=== PATIENT | male | born 1975 | race Two or more races ===

== ENCOUNTER 2019-11-24 11:36 | Emergency (ER) | payer SELFPAY ==
--- NOTE | 2019-11-24 12:44 | ED Physician Documentation ---
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 Worse at night and after eating. Sometime dyspnea. Was seen at a clinic a few days before Xmas and lipase was in the 80s. Also had some mild hypothyroidsim. Started on PPI for presumed gastritis. No help and pain worse x3-4 days. No chg with L arm motion.) - Additonal information Additional information: He does not drink alcohol, he never has had any problems with his heart. He has not had an ultrasound after the lipase was mildly elevated. Review of Systems Ten Systems: 10 systems reviewed and negative Constitutional: denies: Fever, Chills Nose: denies: Rhinorrhea / runny nose, Congestion Throat: denies: Sore throat Cardiac: denies: Chest pain / pressure, Palpitations Respiratory: denies: Dyspnea, Cough GI: reports: Abdominal Pain, Nausea. denies: Vomiting, Diarrhea PD PAST MEDICAL HISTORY - Present Medications Home Medications: Ambulatory Orders Medication Instructions Recorded Confirmed Doxycycline Hyclate 100 mg PO BID #14 capsule 11/24/19 predniSONE [Deltasone] 20 mg PO [id number] #21 tab 11/24/19 - Allergies Allergies/Adverse Reactions: Allergies Allergy/AdvReac Type Severity Reaction Status Date / Time No Known Drug Allergies Allergy Verified 11/24/19 11:42 PD ED PE NORMAL - Vitals Vital signs reviewed: Yes - General General: Alert and oriented X 3, No acute distress - HEENT HEENT: PERRL, EOMI - Neck Neck: Supple, no meningeal sign, No bony TTP - Cardiac Cardiac: RRR, No murmur - Respiratory Respiratory: No respiratory distress, Clear bilaterally - Abdomen Abdomen: Non tender - Back Back: No CVA TTP, No spinal TTP - Derm Derm: Normal color, Warm and dry - Extremities Extremities: No edema, No calf tenderness / cord - Neuro Neuro: Alert and oriented X 3, Normal speech - Psych Psych: Normal mood, Normal affect Results - Vitals Vitals: Vital Signs - 24 hr 11/24/19 11/24/19 11:42 14:52 Temperature 36.7 C Heart Rate 83 65 Respiratory 14 18 Rate Blood Pressure 147/97 H 128/93 H O2 Saturation 99 96 Oxygen O2 Source Room air - EKG (time done) 1349 Rate: Rate (enter#) (69) Rhythm: NSR [place]: Normal Intervals: Normal [place] QRS: Normal (poss rvh) Ischemia: Normal ST segments Computer interpretation: Agree with computer - Labs Labs: Laboratory Tests 11/24/19 11/24/19 11/24/19 10:55 12:55 12:55 WBC 6.9 RBC 5.60 Hgb 16.5 Hct 48.2 MCV 86.1 MCH 29.5 MCHC 34.2 RDW 12.3 Plt Count 253 MPV 10.6 Neut # (Auto) 4.0 Lymph # (Auto) 2.0 [place] # (Auto) 0.5 Eos # (Auto) 0.3 Baso # (Auto) 0.1 Absolute Nucleated RBC 0.00 Nucleated RBC % 0.0 D-Dimer Sodium 141 Potassium 4.1 Chloride 106 Carbon Dioxide 27 Anion Gap 8.0 BUN 17 Creatinine 1.0 Estimated GFR (MDRD) 82 L Glucose 106 H Calcium 9.8 Total Bilirubin 1.0 AST 26 ALT 35 Alkaline Phosphatase 73 Troponin I High Sens 3.7 B-Natriuretic Peptide Total Protein 7.9 Albumin 4.6 Globulin 3.3 Albumin/Globulin Ratio 1.4 Lipase 59 H Urine Color Urine Clarity Urine pH Ur Specific [place] Urine Protein Urine Glucose (UA) Urine Ketones Urine Occult Blood Urine Nitrite Urine Bilirubin Urine Urobilinogen Ur Leukocyte Esterase Ur Microscopic Review Urine Culture Comments 11/24/19 11/24/19 11/24/19 12:55 12:55 13:55 WBC RBC Hgb Hct MCV MCH MCHC RDW Plt Count MPV Neut # (Auto) Lymph # (Auto) [place] # (Auto) Eos # (Auto) Baso # (Auto) Absolute Nucleated RBC Nucleated RBC % D-Dimer < 200.0 L Sodium Potassium Chloride Carbon Dioxide Anion Gap BUN Creatinine Estimated GFR (MDRD) Glucose Calcium Total Bilirubin AST ALT Alkaline Phosphatase Troponin I High Sens B-Natriuretic Peptide 10 Total Protein Albumin Globulin Albumin/Globulin Ratio Lipase Urine Color YELLOW Urine Clarity CLEAR Urine pH 6.5 Ur Specific [place] 1.010 Urine Protein NEGATIVE Urine Glucose (UA) NEGATIVE Urine Ketones NEGATIVE Urine Occult Blood NEGATIVE Urine Nitrite NEGATIVE Urine Bilirubin NEGATIVE Urine Urobilinogen 0.2 (NORMAL) Ur Leukocyte Esterase NEGATIVE Ur Microscopic Review NOT INDICATED Urine Culture Comments NOT INDICATED PD MEDICAL DECISION MAKING - ED course ED course: 44-year-old gentleman with a chronic left-sided chest pain radiating to the shoulder and back which is worse over the last 4 days. Examination is normal. His EKG from the clinic was reviewed, they had it with them. It was without ischemic changes. He does have hypercholesterolemia. His lipases have been very modestly elevated. He does not drink alcohol. Work-up here demonstrated a chest x-ray that was concerning for a left pleural effusion this was followed by CT, he actually did not have a pleural effusion on the CT, just pleural thickening and old scarring as well as bronchiectasis at the right base. His abdominal ultrasound was negative except for mild steatosis. Lab work demonstrates a very mildly elevated lipase, otherwise basically negative. I think cardiac disease has been ruled out at this point. We will treat the bronchiectasis expectantly with antibiotics and steroids, and he is to follow-up with his doctor for further evaluation and treatment. Of note he has recently been tested for tuberculosis with negative results. Departure - Departure Disposition: 01 Home, Self Care Clinical Impression: Hepatic steatosis Chest pain Qualifiers: Chest pain type: pleurodynia Qualified Code(s): R07.81 - Pleurodynia Bronchiectasis Qualifiers: Bronchiectasis type: with acute exacerbation Qualified Code(s): J47.1 - Bronchiectasis with (acute) exacerbation Condition: Good Record reviewed to determine appropriate education?: Yes Instructions: ED Chest Pain NonCardiac, Bronchiectasis Dc Prescriptions: Doxycycline Hyclate 100 mg PO BID #14 capsule predniSONE [Deltasone] 20 mg PO [id number] #21 tab Print Language: Bahamian Comments: [place] discutimos, oswald evaluacin de hoy demuestra que tiene algo llamado bronquiectasia pulmonar que sospecho que le est causando dolor. Todas carlo otras pruebas son bastante normales. Tu prueba del corazn est jessi. Oswald lipasa de hoy es 60, lo que considero bastante intrascendente. Quiero que hagas un seguimiento con tu mdico con garry copia de los resultados que te di. Regrese por sntomas nuevos o que empeoran.
[2019-11-24 13:02] LABS: BASOPHILS # (AUTO) 0.1 10^3/uL (0.0-0.1); BASOPHILS % (AUTO) 0.7 %; EOSINOPHILS # (AUTO) 0.3 10^3/uL (0.0-0.7); EOSINOPHILS % (AUTO) 4.2 %; HGB - HEMOGLOBIN 16.5 g/dL (14.0-18.0); LYMPHOCYTES % (AUTO) 29.4 %; MEAN CORPUSCULAR HEMOGLOBIN 29.5 pg (27.0-31.0); MEAN CORPUSCULAR HGB CONC 34.2 g/dL (32.0-36.0); MEAN CORPUSCULAR VOLUME 86.1 fL (80.0-94.0); MEAN PLATELET VOLUME 10.6 fL (7.4-11.4); MONOCYTES # (AUTO) 0.5 10^3/uL (0.0-1.0); MONOCYTES % (AUTO) 7.3 %; PLT - PLATELET COUNT 253 10^3/uL (130-450); RED CELL DISTRIBUTION WIDTH 12.3 % (12.0-15.0); WHITE BLOOD COUNT 6.9 x10^3/uL (4.8-10.8)
[2019-11-24 13:14] LABS: ALBUMIN 4.6 g/dL (3.2-5.5); ALBUMIN/GLOBULIN RATIO 1.4 (1.0-2.2); CALCIUM 9.8 mg/dL (8.5-10.3); TOTAL PROTEIN 7.9 g/dL (6.7-8.2)
--- NOTE | 2019-11-24 13:40 | XRAY Report ---
Reason: chest pain Procedure Date: 11/24/2019 Accession Number: [id number] / [id number] Procedure: XR - Chest 2 View X-Ray CPT Code: 58703 Final Report FULL RESULT: EXAM: CHEST RADIOGRAPHY EXAM DATE: 11/24/2019 01:17 PM. CLINICAL HISTORY: Chest pain. COMPARISON: None. TECHNIQUE: 2 views. FINDINGS: Lungs/Pleura: Small left pleural effusion with underlying atelectasis versus infiltrate. Otherwise clear. No right effusion. No pneumothorax. Mediastinum: Heart and mediastinal contours are unremarkable. Upper lobe vessels not distended. Other: None. IMPRESSION: Small left pleural effusion with atelectasis versus infiltrate. RADIA
[2019-11-24] MEDS ORDERED: IOVERSOL 320 100 ML VIAL IVP ONE ×2 (14:01→14:18)
[2019-11-24 14:07] LABS: BILIRUBIN,URINE NEGATIVE (NEGATIVE); GLUCOSE, URINE (UA) NEGATIVE (NEGATIVE); KETONES,URINE (UA) NEGATIVE (NEGATIVE); LEUKOCYTE ESTERASE, URINE NEGATIVE (NEGATIVE); NITRITE,URINE NEGATIVE (NEGATIVE); OCCULT BLOOD,URINE NEGATIVE (NEGATIVE); PH,URINE 6.5 PH (5.0-7.5); PROTEIN,URINE NEGATIVE (NEGATIVE); UROBILINOGEN,URINE 0.2 (NORMAL) E.U./dL (NORMAL)
[2019-11-24 14:08] LABS: CLARITY,URINE CLEAR (CLEAR)
--- NOTE | 2019-11-24 14:36 | Ultrasound Report ---
Reason: upper abd pain Procedure Date: 11/24/2019 Accession Number: [id number] / [id number] Procedure: US - Abdomen Limited CPT Code: Final Report FULL RESULT: EXAM: ABDOMEN ULTRASOUND LIMITED, RUQ EXAM DATE: 11/24/2019 01:20 PM. CLINICAL HISTORY: Upper abd pain. COMPARISON: None. TECHNIQUE: Real-time scanning was performed with static images obtained. FINDINGS: Liver: Normal in size, 14.5 cm. Mildly hyperechoic throughout with mildly decreased posterior acoustic penetration. Main portal vein flow: Hepatopetal. Gallbladder: Normal. No stones, wall thickening, or sonographic Sutton's sign. Biliary System: CBD measures 3.4 mm. No intrahepatic or extrahepatic ductal dilatation. Other: Right kidney unremarkable, 10.6 cm in length. IMPRESSION: 1. No findings are identified to explain pain. 2. Mild hepatic steatosis. RADIA
--- NOTE | 2019-11-24 14:55 | CT Report ---
Reason: pleural effusion Procedure Date: 11/24/2019 Accession Number: [id number] / [id number] Procedure: CT - CHEST W CPT Code: Final Report FULL RESULT: EXAM: CT CHEST EXAM DATE: 11/24/2019 02:17 PM. CLINICAL HISTORY: Pleural effusion on chest x-ray, chest pain. COMPARISONS: CHEST 2 VIEW 11/24/2019 1:13 PM. TECHNIQUE: Routine helical CT imaging was performed through the chest. IV contrast: 80 mL Optiray 320. Reconstructions: Coronal and sagittal. In accordance with CT protocol optimization, one or more of the following dose reduction techniques were utilized for this exam: automated exposure control, adjustment of mA and/or KV based on patient size, or use of iterative reconstructive technique. FINDINGS: Lungs/Pleura: There is peripheral scarring in the inferior lingula and basilar left lower lobe with mild pleural thickening. Minimal linear scarring in the right middle lobe. No evidence of pneumonia. No mass. No pleural effusion or pneumothorax. Patent airways. Very mild cylindrical bronchiectasis in the basilar right lower lobe. Calcified right lower lobe granuloma. Mildly elevated left hemidiaphragm. Mediastinum: The heart is normal in size. No pericardial effusion. No mediastinal or hilar lymphadenopathy. A few calcified mediastinal and right hilar nodes are in keeping with prior granulomatous disease. No pulmonary emboli are identified to the proximal segmental level. No aortic aneurysm. Bones: Unremarkable. Visualized Abdomen: Unremarkable. Other: None. IMPRESSION: 1. Left lung base scarring with mild pleural thickening. No pleural effusion. No pneumonia. 2. Very mild cylindrical bronchiectasis in the basilar right lower lobe. RADIA
[2019-11-24 15:29] VITALS: BP 120/88
== END 2019-11-24 15:29 | disposition home or self-care (01) ==
LOC: ED 11:36
DX: J47.1 Bronchiectasis with (acute) exacerbation (principal); R07.81 Pleurodynia; K76.0 Fatty (change of) liver, not elsewhere classified; E78.00 Pure hypercholesterolemia, unspecified; R74.8 Abnormal levels of other serum enzymes
CPT/HCPCS: 36415; 71046; 71260; 76705; 80053; 81003; 83690; 83880; 84484; 85025; 85379; 93005; 99284; Q9967; 81001; 87086

== ENCOUNTER 2022-07-22 17:10 | Outpatient (CLI) | payer BC | END 2022-07-22 17:11 | disposition critical access hospital (66) | LOC: EMS 17:10 | DX: R07.89 Other chest pain (principal); R06.00 Dyspnea, unspecified; R11.0 Nausea; M79.602 Pain in left arm | CPT/HCPCS: A0425; A0427 ==

== ENCOUNTER 2022-07-22 17:23 | Emergency (ER) | payer BC ==
--- NOTE | 2022-07-22 17:48 | ED Physician Documentation ---
PD HPI CHEST PAIN - Stated complaint Stated Complaint: CHEST PRESSURE - Chief complaint Chief Complaint: Cardiac - History obtained from History obtained from: Patient, EMS - History of Present Illness Timing - onset: Today Timing - onset during: Rest Pain level max: 1 Pain level now: 0 Associated symptoms: Feeling faint / dizzy, General Weakness. No: Shortness of air, Diaphoresis Recently seen: Not recently seen - Additional information Additional information: 46-year-old male presents to the emergency department stating that he felt lightheaded and dizzy at home today. He felt like he had numbness in his arms and legs. Had a slight left upper chest pain as well. Nonradiating. worse with standing, better with rest. He did drink tequila this weekend. Has not drink much water. No cardiac history. He does take thyroid medication. He was taken a statin until 2 days ago, but has since stopped this. He states his blood pressure was high at home as well. Currently is feeling better. Review of Systems Constitutional: denies: Fever, Chills Throat: denies: Sore throat Respiratory: denies: Cough GI: denies: Nausea, Vomiting, Diarrhea Skin: denies: Rash Musculoskeletal: denies: Neck pain, Back pain Neurologic: denies: Headache PD PAST MEDICAL HISTORY - Past Medical History Past Medical History: Yes Cardiovascular: High cholesterol Endocrine/Autoimmune: HyPOthyroidism - Past Surgical History Past Surgical History: No - Present Medications Home Medications: Ambulatory Orders Medication Instructions Recorded Confirmed Doxycycline Hyclate 100 mg PO BID #14 capsule 11/24/19 predniSONE [Deltasone] 20 mg PO [id number] #21 tab 11/24/19 - Allergies Allergies/Adverse Reactions: Allergies Allergy/AdvReac Type Severity Reaction Status Date / Time No Known Drug Allergies Allergy Verified 11/24/19 11:42 - Social History Does the pt smoke?: No Smoking Status: Never smoker Does the pt drink ETOH?: Yes Does the pt have substance abuse?: No PD ED PE NORMAL - Vitals Vital signs reviewed: Yes - General General: Alert and oriented X 3 - HEENT HEENT: Moist mucous membranes - Neck Neck: Supple, no meningeal sign - Cardiac Cardiac: RRR, No murmur, Strong equal pulses - Respiratory Respiratory: No respiratory distress, Clear bilaterally - Abdomen Abdomen: Soft, Non tender, Non distended - Derm Derm: Warm and dry - Neuro Neuro: Alert and oriented X 3, 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, No motor deficit, No sensory deficit, Normal speech, Other (normal cerebellar tests.) Eye Opening: Spontaneous Motor: Obeys Commands Verbal: Oriented GCS Score: 15 - Psych Psych: Normal mood, Normal affect Results - Vitals Vitals: Vital Signs - 24 hr 07/22/22 07/22/22 07/22/22 17:36 18:00 18:30 Temperature 37 C Heart Rate 95 74 81 Respiratory 20 20 20 Rate Blood Pressure 156/101 H 129/81 H 126/77 O2 Saturation 99 07/22/22 07/22/22 19:00 19:30 Temperature Heart Rate 70 73 Respiratory 16 16 Rate Blood Pressure 123/76 121/78 O2 Saturation 97 98 Oxygen O2 Source Room air - EKG (time done) 1727 Rate: Rate (enter#) (86) Rhythm: NSR [place]: RAD Intervals: Normal [place] QRS: Normal Ischemia: Normal ST segments, Q waves (III, aVF) - Labs Labs: Laboratory Tests 07/22/22 07/22/22 07/22/22 17:45 17:45 17:45 WBC 11.1 H RBC 5.36 Hgb 15.6 Hct 46.4 MCV 86.6 MCH 29.1 MCHC 33.6 RDW 12.4 Plt Count 245 MPV 10.9 Neut # (Auto) 8.0 H Lymph # (Auto) 2.0 [place] # (Auto) 0.7 Eos # (Auto) 0.3 Baso # (Auto) 0.1 Absolute Nucleated RBC 0.00 Nucleated RBC % 0.0 Sodium 137 Potassium 3.7 Chloride 104 Carbon Dioxide 26 Anion Gap 7.0 BUN 15 Creatinine 1.1 Estimated GFR (MDRD) 73 L Glucose 108 H Calcium 9.2 Total Bilirubin 0.5 AST 30 ALT 45 Alkaline Phosphatase 72 Troponin I High Sens 3.8 Total Protein 7.8 Albumin 4.4 Globulin 3.4 Albumin/Globulin Ratio 1.3 Lipase 61 H 07/22/22 19:03 WBC RBC Hgb Hct MCV MCH MCHC RDW Plt Count MPV Neut # (Auto) Lymph # (Auto) [place] # (Auto) Eos # (Auto) Baso # (Auto) Absolute Nucleated RBC Nucleated RBC % Sodium Potassium Chloride Carbon Dioxide Anion Gap BUN Creatinine Estimated GFR (MDRD) Glucose Calcium Total Bilirubin AST ALT Alkaline Phosphatase Troponin I High Sens 3.8 Total Protein Albumin Globulin Albumin/Globulin Ratio Lipase PD MEDICAL DECISION MAKING - ED course Complexity details: reviewed results, re-evaluated patient, considered differential (No ST elevation NV, no aortic dissection, no PE, no tension pneumothorax, no aortic aneurysm), d/w patient, d/w family ED course: 46-year-old male presents to the emergency department with lightheadedness, dizziness and weakness today. Had minimal chest pain as well. Negative high- sensitivity troponin x2. Does have Q waves on his EKG. Does not have any specific cardiac history. We will have him follow-up with his doctor for cardiac stress test. Patient feels much better after IV fluids here. Possible dehydration after drinking alcohol and not much water on a warm weekend. Ambulating without difficulty. No focal neurological deficits. Normal cerebellar test. Patient and family counseled regarding signs and symptoms for which I believe and urgent re-evaluation would be necessary. Patient with good understanding of and agreement to plan and is comfortable going home at this time This document was made in part using voice recognition software. While efforts are made to proofread this document, sound alike and grammatical errors may occur. grain operator used for history and physical as well as discharge process Departure - Departure Disposition: 01 Home, Self Care Clinical Impression: Dehydration, Dizziness Chest pain Qualifiers: Chest pain type: unspecified Qualified Code(s): R07.9 - Chest pain, unspecified Condition: Good Instructions: ED Chest Pain Atypical Unkn Cause Follow-Up: your,doctor in 1 week [Other] Print Language: Romansh Comments: Please continue your current medications at home. Please follow-up with your doctor for further care. Please return if you worsen. Your testing today does not show any acute abnormalities. You should start on an aspirin daily. Your doctor can arrange a cardiac stress test for you. Contine con carlo medicamentos actuales en casa. Por favor, mendez un seguimiento con oswald mdico para recibir atencin adicional. Por favor, devulvelo si empeoras. Carlo pruebas de hoy no muestran anomalas agudas. Debes empezar con garry aspirina al da. Oswald mdico puede programar garry prueba de esfuerzo cardaco para usted. Discharge Date/Time: 07/22/22 19:57
[2022-07-22 17:50] LABS: BASOPHILS # (AUTO) 0.1 10^3/uL (0.0-0.1); BASOPHILS % (AUTO) 0.5 %; EOSINOPHILS # (AUTO) 0.3 10^3/uL (0.0-0.7); EOSINOPHILS % (AUTO) 2.7 %; HCT - HEMATOCRIT 46.4 % (42.0-52.0); HGB - HEMOGLOBIN 15.6 g/dL (14.0-18.0); MEAN CORPUSCULAR HEMOGLOBIN 29.1 pg (27.0-31.0); MEAN CORPUSCULAR HGB CONC 33.6 g/dL (32.0-36.0); MEAN CORPUSCULAR VOLUME 86.6 fL (80.0-94.0); MEAN PLATELET VOLUME 10.9 fL (7.4-11.4); MONOCYTES # (AUTO) 0.7 10^3/uL (0.0-1.0); MONOCYTES % (AUTO) 6.5 %; PLT - PLATELET COUNT 245 10^3/uL (130-450); RED BLOOD COUNT 5.36 10^6/uL (4.70-6.10); RED CELL DISTRIBUTION WIDTH 12.4 % (12.0-15.0); WHITE BLOOD COUNT 11.1 x10^3/uL (4.8-10.8)
--- NOTE | 2022-07-22 17:50 | XRAY Report ---
PROCEDURE: Chest 1 View X-Ray INDICATIONS: Chest Pain TECHNIQUE: One view of the chest was acquired. COMPARISON: Chest CT and chest radiograph 11/24/2019 FINDINGS: Surgical changes and devices: None. Lungs and pleura: No pleural effusions or pneumothorax. Mild chronic blunting of left costophrenic a ngle. Lungs otherwise clear. Mediastinum: Mediastinal contours appear normal. Heart size is normal. Bones and chest wall: No suspicious bony lesions. Overlying soft tissues appear unremarkable. IMPRESSION: No acute cardiopulmonary abnormality. Reviewed by: Kamar Hill MD on 07/22/2022 4:49 PM RAFAELA Approved by: Kamar Hill MD on 07/22/2022 4:49 PM RAFAELA Station ID: [id number]
[2022-07-22 18:24] LABS: ALBUMIN 4.4 g/dL (3.2-5.5); ALBUMIN/GLOBULIN RATIO 1.3 (1.0-2.2); BILIRUBIN,TOTAL 0.5 mg/dL (0.2-1.0); CALCIUM 9.2 mg/dL (8.5-10.3); CREATININE 1.1 mg/dL (0.6-1.2); POTASSIUM 3.7 mmol/L (3.5-5.0); TOTAL PROTEIN 7.8 g/dL (6.7-8.2)
[2022-07-22 19:41] VITALS: BP 121/78
== END 2022-07-22 19:57 | disposition home or self-care (01) ==
LOC: EDUNIT# → ED 17:23
DX: R07.9 Chest pain, unspecified (principal); E86.0 Dehydration
CPT/HCPCS: 36415; 80053; 83690; 84484; 85025; 93005; 99284

== ENCOUNTER 2022-10-18 08:00 | Outpatient (CLI) | payer BC ==
--- NOTE | 2022-10-18 11:43 | XRAY Report ---
PROCEDURE: Nasal Bones INDICATIONS: CONTUSION OF NOSE TECHNIQUE: 3 views of the nasal bones acquired. COMPARISON: None FINDINGS: Bones: Nondisplaced lucency is noted within the midportion of the nasal bone seen on the left. It is also seen on the right but corresponds to a skin fold. Nasal septum is midline. Normal nasociliary n erve grooves are noted. Soft tissues: No suspicious soft tissue calcifications. IMPRESSION: Possible nondisplaced nasal bone fracture as above. Reviewed by: Lisa Hoff MD on 10/18/2022 11:42 AM PST Approved by: Lisa Hoff MD on 10/18/2022 11:42 AM PST Station ID: [id number]
== END 2022-10-18 23:59 | disposition home or self-care (01) ==
LOC: DI.S 08:00
PROVIDERS: ATTEND Physician Assistant Medical
DX: S00.33XA Contusion of nose, initial encounter (principal)

== ENCOUNTER 2023-01-28 13:18 | Outpatient (CLI) | payer OTHER ==
[2023-01-28 20:02] LABS: CREATININE 1.1 mg/dL (0.6-1.2)
[2023-01-28 20:25] LABS: THYROID STIMULATING HORMONE 16.42 uIU/mL (0.34-5.60)
[2023-01-28 20:27] LABS: FREE T4 (FREE THYROXINE) 0.61 ng/dL (0.58-1.64)
== END 2023-01-28 13:19 | disposition home or self-care (01) ==
LOC: LAB.S 13:18
PROVIDERS: ATTEND Student in an Organized Health Care Education/Training Program
DX: R10.9 Unspecified abdominal pain (principal); K62.5 Hemorrhage of anus and rectum; E03.8 Other specified hypothyroidism; E06.3 Autoimmune thyroiditis
CPT/HCPCS: 36415; 82565; 84439; 84443; 84520

== ENCOUNTER 2023-02-17 13:29 | Outpatient (CLI) | payer OTHER ==
[2023-02-17] MEDS ORDERED: iohexoL-300 100 ML VIAL ONE (13:45)
[2023-02-17] MEDS ORDERED: DIATR MEGLU/DIATRIZOATE SODIUM 120 ML BOTTLE ONE (13:45)
--- NOTE | 2023-02-17 15:25 | CT Report ---
PROCEDURE: ABDOMEN/PELVIS W INDICATIONS: ABDOMEN PAIN, BRIGHT RED BLOOD PER RECTUM CONTRAST: 100ml Omnipaque 300 TECHNIQUE: After the administration of oral and intravenous contrast, 5 mm thick sections acquired from the diap hragms to the symphysis. 5 mm thick coronal and sagittal reformats were acquired. For radiation dos e reduction, the following was used: automated exposure control, adjustment of mA and/or kV accordin g to patient size. COMPARISON: CT 11/24/2021 FINDINGS: Image quality: Excellent. Lung bases and heart: Calcified granuloma in the right lower lobe. Liver: Hepatic steatosis. Gallbladder and biliary tree: Unremarkable. No biliary dilation. Spleen: Unremarkable. Pancreas: Unremarkable. Adrenals: Unremarkable. Kidneys and ureters: Unremarkable. Bowel and peritoneum: No bowel distension. No pathologic free fluid. Lymph nodes: No central or retroperitoneal adenopathy. Vessels: Unremarkable. PELVIS Reproductive organs: Unremarkable. Bladder: Unremarkable. Lymph nodes: Unremarkable. Bones: No aggressive osseous abnormality. Other: None. IMPRESSION: No acute findings explaining the patient's left flank pain. Reviewed by: Padilla Tuttle on 02/17/2023 3:24 PM PDT Approved by: Padilla Tuttle on 02/17/2023 3:24 PM PDT Station ID: [id number]
[2023-02-18] MEDS ORDERED: DIATRIZOATE MEGLU/DIATRIZO SOD 30 ML BOTTLE PO ONE (10:17)
[2023-02-18] MEDS ORDERED: iohexoL-300 100 ML VIAL IVP ONE (10:18)
== END 2023-02-17 13:30 | disposition home or self-care (01) ==
LOC: DI 13:29
PROVIDERS: ATTEND Internal Medicine
DX: R10.9 Unspecified abdominal pain (principal); K62.5 Hemorrhage of anus and rectum
CPT/HCPCS: 74177; Q9963

== ENCOUNTER 2023-09-17 18:04 | Outpatient (CLI) | payer OTHER ==
--- NOTE | 2023-09-18 10:58 | XRAY Report ---
PROCEDURE: Chest 2 View X-Ray INDICATIONS: CHEST PAIN TECHNIQUE: 2 views of the chest were acquired. COMPARISON: None. FINDINGS: Surgical changes and devices: None. Lungs and pleura: No pleural effusions or pneumothorax. Lungs are clear. Mediastinum: Mediastinal contours appear normal. Heart size is normal. Bones and chest wall: No suspicious bony lesions. Overlying soft tissues appear unremarkable. IMPRESSION: No acute cardiopulmonary process. Reviewed by: Padilla Tuttle on 09/18/2023 10:56 AM PDT Approved by: Padilla Tuttle on 09/18/2023 10:56 AM PDT Station ID: [id number]
== END 2023-09-17 18:05 | disposition home or self-care (01) ==
LOC: DI.S 18:04
PROVIDERS: ATTEND Internal Medicine
DX: R07.9 Chest pain, unspecified (principal)

== ENCOUNTER 2024-01-12 11:15 | Emergency (ER) | payer OTHER ==
[2024-01-12 11:29] VITALS: BP 140/90; O2SAT 100
--- NOTE | 2024-01-12 12:10 | ED Physician Documentation ---
History of Present Illness - Stated complaint Stated Complaint: L SIDED PX - Chief complaint Chief Complaint: General - History obtained from History obtained from: Patient - Additonal information Additional information: 48-year-old gentleman with history of hypothyroidism presents with . 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 He has been sick for about a week with cough, runny nose, left-sided scalp pain, eye pain, and chills as well as body aches. No fevers. PD PAST MEDICAL HISTORY - Past Medical History Past Medical History: Yes Cardiovascular: High cholesterol Endocrine/Autoimmune: HyPOthyroidism - Past Surgical History Past Surgical History: No - Present Medications Home Medications: Ambulatory Orders Medication Instructions Recorded Confirmed Doxycycline Hyclate 100 mg PO BID #14 capsule 11/24/19 predniSONE [Deltasone] 20 mg PO [id number] #21 tab 11/24/19 HYDROcod/ACETAM 5/325 [Burns 5/325] 1 - 2 tab PO Q6H PRN #10 tablet 01/12/24 Ibuprofen [Motrin] 800 mg PO Q8H PRN #14 tablet 01/12/24 - Allergies Allergies/Adverse Reactions: Allergies Allergy/AdvReac Type Severity Reaction Status Date / Time levofloxacin AdvReac Hives Verified 01/12/24 11:18 - Social History Does the pt smoke?: No Smoking Status: Never smoker Does the pt drink ETOH?: Yes Does the pt have substance abuse?: No - Immunizations Immunizations are current?: Yes - POLST Patient has POLST: No PD ED PE NORMAL - Vitals Vital signs reviewed: Yes - General General: Alert and oriented X 3, No acute distress - HEENT HEENT: Pharynx benign, Other (No maxillary sinus tenderness, no otitis, mildly red oropharynx without tonsillar swelling or exudates.) - Neck Neck: Supple, no meningeal sign, No bony TTP - Cardiac Cardiac: RRR, No murmur - Respiratory Respiratory: No respiratory distress, Clear bilaterally - Abdomen Abdomen: Non tender - Neuro Neuro: Alert and oriented X 3, Normal speech - Psych Psych: Normal mood, Normal affect Results - Vitals Vitals: Vital Signs - 24 hr 01/12/24 11:18 Temperature 36.8 C Heart Rate 71 Respiratory 16 Rate Blood Pressure 140/90 H O2 Saturation 100 Oxygen O2 Source Room air PD Medical Decision Making - ED course ED course: 48-year-old gentleman with nonspecific viral syndrome. He is well-appearing with normal exam other than some mild redness of the tonsillar pillars. Discussed with him that it was likely a flulike illness and conservative care was advised. He did need something for nighttime aches and pains as they are keeping him up. Departure - Departure Disposition: 01 Home, Self Care Clinical Impression: Viral syndrome Condition: Good Record reviewed to determine appropriate education?: Yes Instructions: ED Viral Syndrome Prescriptions: Ibuprofen [Motrin] 800 mg PO Q8H PRN #14 tablet PRN Reason: PAIN &/OR FEVER HYDROcod/ACETAM 5/325 [Burns 5/325] 1 - 2 tab PO Q6H PRN #10 tablet PRN Reason: Pain Comments: You were seen today for a viral syndrome, could be flu or other virus. We are running a test and I will call you in a few hours with results at [phone]. Otherwise I sent some pain medication to the [facility] in [place] that should help with the aches and pains. Call your doctor to arrange a follow-up appointment, make the next available appointment. In the interim, return an ytime if worse or if new symptoms develop. I am prescribing a short course of narcotic pain medication for you. These are potentially dangerous and addictive medications that should be used carefully. These medications may constipate you. Take an wohz-cdw-sdwguwy stool softener (docusate) twice daily with plenty of water while taking these medications. If you go 24 hours without a bowel movement, take gbth-lwp-cdugchc miralax, per package instructions. Do not drink or drive while taking these medications. If you received narcotic or sedating medications while in the emergency department, do not drive for 24 hours. Store this medication in a safe, secure place and out of reach of children. It is a violation of federal law to give or sell this medication to another person or to use in a manner other than prescribed. The ED will not refill narcotic prescriptions, including prescriptions lost or stolen. To dispose of unwanted medications: 1. [facility] provides a drop box for medication in pill form only (no liquids) 8:00 am to 4:30 p.m. Friday-Friday in the lobby of the [facility], [address] [place] [address]. Empty pills into ziplock bag before disposal. Call [phone] for information. 2.[employer] is a free service available to all [facility] residents. Go to [email or web address] Note that many narcotic pain relievers also contain Tylenol/acetaminophen. Please ensure that your total dose of acetaminophen from all sources does not exceed 3 g (3000 mg) per day. Usted fue atendido hoy por un sndrome viral, podra ser gripe u otro virus. Estamos realizando garry prueba y lo llamar en unas horas con los resultados al [phone]. De lo contrario, envi algunos analgsicos a [facility] en [place] que deberan ayudar con los vince y molestias. Llame a oswald mdico para concertar garry mynor de seguimiento y programe la prxima mynor disponible. Mientras tanto, regrese en cualquier momento si empeora o si se desarrollan nuevos sntomas. Le estoy recetando un tratamiento corto con analgsicos narcticos. Estos son medicamentos potencialmente peligrosos y adictivos que deben usarse con cuidado. Estos medicamentos pueden causarle estreimiento. [place] un ablandador de heces de venta yahaira (docusato) dos veces al da con abundante agua mientras martha estos medicamentos. Si pasa 24 horas sin defecar, tome miralax de venta yahaira, segn las instrucciones del paquete. No allan ni conduzca mientras est tomando estos medicamentos. Si recibi narcticos o sedantes mientras estaba en el departamento de emergencias, no conduzca viky 24 horas. Guarde brenda medicamento en un lugar seguro y fuera del alcance de los nios. Es garry violacin de la javi federal [place] o rac specialist brenda medicamento a otra persona o usarlo de garry manera distinta a la prescrita. [facility] no resurte recetas de narcticos, incluidas recetas perdidas o robadas. Para deshacerse de medicamentos no deseados: 1. [facility] [employer] del condado [facility] proporciona un buzn para entregar medicamentos nicamente en forma de pldora (no lquidos) de 8:00 a. m. a 4:30 p. m. De lunes a viernes en el vestbulo del anexo del [facility], [address] Vace las pastillas en garry [facility] antes de desecharlas. Llame al [phone] para obtener informacin. 2.ZenDoc es un servicio gratuito disponible para todos los residentes del [facility]. Vaya a [email or web address] Darell en cuenta que muchos analgsicos narcticos tambin contienen Tylenol/acetaminofn. Asegrese de que oswald dosis total de acetaminofn de todas las gutiérrez no exceda los 3 g (3000 mg) por da.
[2024-01-12 13:16] LABS: B. PARAPERTUSSIS- RESP PCR PAN NOT DETECTED; B. PERTUSSIS- RESP PCR PANEL NOT DETECTED; C. PNEUMONIAE- RESP PCR PANEL NOT DETECTED; CORONAVIRUS 229E-RESP PCR NOT DETECTED; CORONAVIRUS HKU1-RESP PCR NOT DETECTED; CORONAVIRUS NL63-RESP PCR NOT DETECTED; CORONAVIRUS OC43-RESP PCR NOT DETECTED; HUMAN METAPNEUMOVIRUS NOT DETECTED; INFLUENZA A- RESP PCR PANEL NOT DETECTED; INFLUENZA B - RESP PCR PANEL NOT DETECTED; M. PNEUMONIAE- RESP PCR PANEL NOT DETECTED; PARAINFLUENZA VIRUS 1 NOT DETECTED; PARAINFLUENZA VIRUS 2 NOT DETECTED; PARAINFLUENZA VIRUS 3 NOT DETECTED; PARAINFLUENZA VIRUS 4 NOT DETECTED; RHINOVIRUS/ENTEROVIRUS NOT DETECTED; RSV- RESP PCR PANEL NOT DETECTED; SARS-CoV-2 -RESP PCR PANEL NOT DETECTED
== END 2024-01-12 12:29 | disposition home or self-care (01) ==
LOC: ED 11:15
DX: B34.9 Viral infection, unspecified (principal)
CPT/HCPCS: 87633; 99283